=== PATIENT | female | born 1970 | race Caucasian/White ===

== ENCOUNTER 2018-03-27 14:17 | Outpatient (CLI) | END 2018-03-27 14:45 | disposition short-term general hospital (02) | LOC: AMBL 14:17 | PROVIDERS: ATTEND Family Medicine | DX: R11.2 Nausea with vomiting, unspecified (principal); R19.7 Diarrhea, unspecified ==

== ENCOUNTER 2018-10-03 12:48 | Emergency (ER) ==
[2018-10-03 12:53] VITALS: BP 119/72; TEMP 99
[2018-10-03] MEDS ORDERED: DILAUDID 1 MG/ML SYRINGE IM STA (13:27)
--- NOTE | 2018-10-03 14:11 | ED.PDOC ---
General ED Provider: Dr. JACQUELYN WILLS Chief Complaint: Non-specific Complaint Stated Complaint: pateint is a 47 year old female who has a history of cervical cancer who comes to the ER with lower abdominal pain at feels like her prior cancer pain. She is out of her medication and has been for 4 months. Pain got worse last night. Denies any fever or chills. Time Seen by Physician: 14:10 Mode of Arrival: Walk-In Information Source: Patient Primary Care Provider: LINDA GREEN Nursing and Triage Documentation Reviewed and Agree: Yes Does patient meet sepsis criteria?: No System Inflammatory Response Syndrome: Not Applicable Sepsis Protocol: For patient's 13 years and over: Temp is 96.8 and below OR 101 and greater Pulse >90 BPM Resp >20/minute Acutely Altered Mental Status Are patient's symptoms suggestive of a new infection, such as: -Pneumonia -Skin, Soft Tissue -Endocarditis -UTI -Bone, Joint Infection -Implantable Device -Acute Abdominal Infection -Wound Infection -Meningitis -Blood Stream Catheter Infection -Unknown GI Complaint Exam - Abdominal Pain Complaint/Exam Onset: Gradual Duration: 2 days Symptoms Are: Still present Timing: Constant Initial Severity: Moderate Current Severity: Severe Location of Pain: Suprapubic Character: Reports: Aching, Throbbing Aggravating: Reports: Position Alleviating: Reports: None Associated Signs and Symptoms: Denies: Diaphoresis, Fever, Cough, Chest pain, Dizziness, Back pain, Constipation, Blood in stool, Dysuria, Urinary frequency, Decreased urine output, Decreased appetite, Vaginal bleeding, Vaginal discharge , Nausea, Vomiting, Diarrhea, Sore throat, Decreased activity AAA Risk Factors: Reports: None Cardiac Risk Factors: Reports: None Ectopic Risk Factors: Reports: None Ovarian Torsion Risk Factors: Reports: None Surgical Obstruction Risk Factors: Reports: None Patient Rh Status: Unknown Abdominal Findings: Present: Other (suprapubic pain ) Differential Diagnoses: Appendicitis, Diverticulitis, Gastroenteritis, Renal Colic, UTI, Ovarian Cyst Review of Systems - Review Of Systems Constitutional: Reports: No symptoms Eyes: Reports: No symptoms Ears, Nose, Mouth, Throat: Reports: No symptoms Respiratory: Reports: No symptoms Cardiac: Reports: No symptoms GI: Reports: No symptoms : Reports: Other (pelvic pain ) Musculoskeletal: Reports: No symptoms Skin: Reports: No symptoms Neurological: Reports: Anxiety Endocrine: Reports: No symptoms Hematologic/Lymphatic: Reports: No symptoms All Other Systems: Reviewed and Negative Past Medical History - Past Medical History Previously Healthy: Yes Endocrine: Reports: None Cardiovascular: Reports: None Respiratory: Reports: None Hematological: Reports: None Gastrointestinal: Reports: None Genitourinary: Reports: None Neuro/Psych: Reports: Anxiety, Depression Musculoskeletal: Reports: None Cancer: Reports: Other (cervical ) Last Menstrual Period: bleeding now - Surgical History General Surgical History: Reports: Other (ovary resection ) - Family History Family History: Reports: Unknown - Social History Smoking Status: Former smoker Hx Substance Use: No Alcohol Screening: None Physical Exam - Physical Exam Appearance: Well-appearing Ill-appearing: Mild Pain Distress: None Eyes: MARGARITA, EOMI, Conjunctiva clear Neck: Supple Respiratory: Airway patent Re-Evaluation - Re-Evaluation Time of Re-Evaluation: 16:00 Status: Improved Vital Signs Stable: Yes Pain Level: 5/10 Critical Care Note - Critical Care Note Total Time (mins): 0 Course - Course Hematology/Chemistry: 10/03/18 14:32 10/03/18 14:32 Orders, Labs, Meds: Lab Review 10/03/18 10/03/18 10/03/18 13:40 14:32 14:32 WBC 8.54 RBC 4.65 Hgb 13.3 Hct 41.0 MCV 88.2 MCH 28.6 MCHC 32.4 RDW Coeff of Williams 13.7 Plt Count 405 Immature Gran % (Auto) 0.2 Neut % (Auto) 61.7 Lymph % (Auto) 32.4 [place] % (Auto) 4.2 Eos % (Auto) 1.1 Baso % (Auto) 0.4 Immature Gran # (Auto) 0.0 Neut # (Auto) 5.3 Lymph # (Auto) 2.8 [place] # (Auto) 0.4 Eos # (Auto) 0.1 Baso # (Auto) 0.0 Sodium 139.2 Potassium 3.79 Chloride 107.2 H Carbon Dioxide 21.0 L Anion Gap 14.79 BUN 10.2 Creatinine 0.75 Estimated GFR (MDRD) 82.00 BUN/Creatinine Ratio 13.60 Glucose 84.9 Calcium 9.20 Total Bilirubin 0.51 AST 19.8 ALT 17.3 Alkaline Phosphatase 79.5 Total Protein 7.78 Albumin 4.61 Globulin 3.17 Albumin/Globulin Ratio 1.45 Amylase 97.5 Lipase 139.1 Urine Color Yellow Urine Clarity Clear Urine pH 5.5 Ur Specific [place] 1.025 Urine Protein Negative Urine Glucose (UA) Negative Urine Ketones 2+ Urine Blood Negative Urine Nitrite Negative Urine Bilirubin Negative Urine Urobilinogen 0.2 Ur Leukocyte Esterase Negative Ur Squamous Epith Cells Not present Orders Category Date Time Status AMYLASE Stat LAB 10/03/18 14:32 Completed CBC W/ AUTO DIFF Stat LAB 10/03/18 14:32 Completed COMPREHENSIVE METABOLIC PANEL Stat LAB 10/03/18 14:32 Completed LIPASE Stat LAB 10/03/18 14:32 Completed UA [URINALYSIS C & S IF INDICATED] Stat LAB 10/03/18 13:40 Completed Hydromorphone HCl [Dilaudid 1 mg/ml Syringe] MEDS 10/03/18 13:27 Discontinued 1 mg IM ONCE STA CT ABDOMEN/PELVIS WO CONTRAST Stat RADS 10/03/18 14:11 Completed Medications Discontinued Medications Generic Name Dose Route Start Last Admin Trade Name Freq PRN Reason Stop Dose Admin Hydromorphone HCl 1 mg 10/03/18 13:27 10/03/18 13:33 Dilaudid 1 Mg/Ml Syringe IM 10/03/18 13:28 1 mg ONCE STA Administration Vital Signs: Temp Pulse Resp BP Pulse Ox 10/03/18 12:50 99.0 F 69 20 119/72 98 Departure - Departure Time of Disposition: 16:06 Disposition: HOME SELF-CARE Discharge Problem: Abdominal pain Qualifiers: Abdominal location: lower abdomen, unspecified Qualified Code(s): R10.30 - Lower abdominal pain, unspecified Instructions: Abdominal Pain (ED) Condition: Fair Pt referred to PMD for follow-up: Yes IPMP verified?: Yes (Jul 07 2018 was the last percocet Rx) Additional Instructions: Take medications as needed for pain take laxatives while on pain medications. follow up with PCP in 3 days Prescriptions: Oxycodone-Acetaminophe 7.5-325 [Percocet 7.5-325] 1 tab PO Q6H #20 tablet Sennosides [Senna Lax] 8.6 mg PO BID #60 tablet Allergies/Adverse Reactions: Allergies Sulfa (Sulfonamide Antibiotics) Adverse Reaction (Verified 10/03/18 12:53) Home Medications: Ambulatory Orders Escitalopram Oxalate [Lexapro] 20 mg PO DAILY 10/03/18 Oxycodone-Acetaminophe 7.5-325 [Percocet 7.5-325] 1 tab PO Q6H #20 tablet Sennosides [Senna Lax] 8.6 mg PO BID #60 tablet 10/03/18 Topiramate [Topamax] 100 mg PO PRN PRN 10/03/18 Disposition Discussed With: Patient, Family
--- NOTE | 2018-10-03 14:56 | CT ---
EXAM: CT abdomen and pelvis without contrast. HISTORY: Pelvic pain with history of cervical cancer TECHNIQUE: Multi-slice transaxial helical CT. Coronal and sagittal reformatons were performed. COMPARISON: 03/27/2018 FINDINGS: The heart is normal in size. Subsegmental atelectasis is seen within the left lung base. Evaluation of the solid organs is limited without IV contrast. The spleen is normal in size. The ga llbladder has been removed. No intrahepatic biliary ductal dilation is seen. The pancreas and the b ilateral adrenal glands appear grossly unremarkable. No hydronephrosis or renal calculus is seen. The bowel is not dilated. Urinary bladder is not well distended. The uterus has been removed. The appendix appears normal. No pelvic free fluid is seen. No retroperitoneal adenopathy is seen. 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 IMPRESSION: 1. No acute abdominal findings. 2. No hydronephrosis or renal calculus. 3. Prior cholecystectomy and hysterectomy. 4. Normal appendix. 5. Limited exam without IV contrast.
== END 2018-10-03 16:07 | disposition home or self-care (01) ==
LOC: ED 12:48
DX: R10.30 Lower abdominal pain, unspecified (principal); F41.8 Other specified anxiety disorders; Z85.41 Personal history of malignant neoplasm of cervix uteri
CPT/HCPCS: 36415; 80053; 81001; 82150; 83690; 85025; 96372; 99283

== ENCOUNTER 2019-01-14 17:53 | Emergency (ER) ==
[2019-01-14 17:58] VITALS: BP 123/86; TEMP 98.1; BMI 30.4
[2019-01-14] MEDS ORDERED: MORPHINE 2 MG/ML SYRINGE IM STA (19:02)
[2019-01-14] MEDS ORDERED: PHENERGAN 25 MG/ML VIAL IM STA (19:03)
--- NOTE | 2019-01-14 20:11 | CT ---
EXAM: CT abdomen and pelvis without contrast. HISTORY: Lower abdominal pain. Vaginal pain. TECHNIQUE: Multi-slice transaxial helical CT. Coronal and sagittal reformatons were performed. COMPARISON: 10/03/2089 FINDINGS: The heart is normal in size. The lung bases are clear. Evaluation of the solid organs is limited without IV contrast. The spleen is normal in size. The ga llbladder has been removed. The pancreas and the bilateral adrenal glands appear grossly unremarkabl e. No hydronephrosis or renal calculus is seen. No intrahepatic biliary ductal dilation is seen. The bowel is not dilated. The appendix appears normal in size. The uterus has been removed. Urinar y bladder appears grossly unremarkable. No pelvic free fluid is seen. No retroperitoneal adenopathy is seen. Minimal multilevel lower lumbar facet osteoarthritis is seen. IMPRESSION: 1. No acute abdominal findings. 2. Prior operative and incidental findings as detailed above.
--- NOTE | 2019-01-14 20:21 | ED.PDOC ---
General ED Provider: Dr. RUBEN MUNOZ-ER Chief Complaint: Non-specific Complaint Stated Complaint: im having bleeding--i had a hyst 10 yrs ago and now im having vaginal bleeding --i was told my uterine cancer is back and they are sending me to [facility] about this Time Seen by Physician: 18:00 Mode of Arrival: Walk-In Information Source: Patient Exam Limitations: No limitations Primary Care Provider: LINDA GREEN Nursing and Triage Documentation Reviewed and Agree: Yes Does patient meet sepsis criteria?: No System Inflammatory Response Syndrome: Not Applicable Sepsis Protocol: For patient's 13 years and over: Temp is 96.8 and below OR 101 and greater Pulse >90 BPM Resp >20/minute Acutely Altered Mental Status Are patient's symptoms suggestive of a new infection, such as: -Pneumonia -Skin, Soft Tissue -Endocarditis -UTI -Bone, Joint Infection -Implantable Device -Acute Abdominal Infection -Wound Infection -Meningitis -Blood Stream Catheter Infection -Unknown 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 Exam - Vaginal Bleeding Complaint/Exam Onset/Duration: 3 weeks Symptoms Are: Still present Timing: Constant Initial Severity: Mild Current Severity: Mild Associated Signs and Symptoms: Reports: Abdominal pain Abdominal Findings: Present: None Vulva Exam: Present: Normal Findings Vaginal Exam: Present: Normal Findings Cervical Exam: Present: Normal findings Adnexal Exam: Present: Normal Findings Review of Systems - Review Of Systems Constitutional: Reports: No symptoms Eyes: Reports: No symptoms Ears, Nose, Mouth, Throat: Reports: No symptoms Respiratory: Reports: No symptoms Cardiac: Reports: No symptoms GI: Reports: No symptoms : Reports: No symptoms Musculoskeletal: Reports: No symptoms Skin: Reports: No symptoms Neurological: Reports: No symptoms Endocrine: Reports: No symptoms Hematologic/Lymphatic: Reports: No symptoms All Other Systems: Reviewed and Negative Past Medical History - Past Medical History Previously Healthy: Yes Endocrine: Reports: None Cardiovascular: Reports: None Respiratory: Reports: None Hematological: Reports: None Gastrointestinal: Reports: None Genitourinary: Reports: None Neuro/Psych: Reports: Anxiety, Depression Musculoskeletal: Reports: None Cancer: Reports: Other (cervical ) Last Menstrual Period: N/A - Surgical History General Surgical History: Reports: Other (ovary resection ) - Family History Family History: Reports: Unknown - Social History Smoking Status: Former smoker Hx Substance Use: No Alcohol Screening: None Physical Exam - Physical Exam Appearance: Well-appearing, No pain distress, Well-nourished Pain Distress: Mild Eyes: MARGARITA, EOMI, Conjunctiva clear ENT: Ears normal, Nose normal, Oropharynx normal Neck: Supple Respiratory: Airway patent Cardiovascular: RRR, Pulses normal, No rub, No murmur GI/: Soft, Nontender, No masses, Bowel sounds normal, No Organomegaly Musculoskeletal: Normal strength, ROM intact, No edema, No calf tenderness Skin: Warm, Dry, Normal color Neurological: Sensation intact, Motor intact, Reflexes intact, Cranial nerves intact, Alert, Oriented Psychiatric: Affect appropriate, Mood appropriate Interpretation - Radiology Interpretation Radiology Interpretation By: Radiologist Radiology Results: Negative Exam Interpreted: CT Scan Critical Care Note - Critical Care Note Total Time (mins): 0 Course - Course Hematology/Chemistry: 01/14/19 18:42 01/14/19 18:42 Orders, Labs, Meds: Lab Review 01/14/19 01/14/19 01/14/19 18:42 18:42 18:42 WBC 9.79 RBC 4.09 L Hgb 11.9 L Hct 36.1 L MCV 88.3 MCH 29.1 MCHC 33.0 RDW Coeff of Williams 13.2 Plt Count 398 Immature Gran % (Auto) 0.3 Neut % (Auto) 58.6 Lymph % (Auto) 32.6 [place] % (Auto) 6.1 Eos % (Auto) 2.0 Baso % (Auto) 0.4 Immature Gran # (Auto) 0.0 Neut # (Auto) 5.7 Lymph # (Auto) 3.2 [place] # (Auto) 0.6 Eos # (Auto) 0.2 Baso # (Auto) 0.0 Sodium 139.9 Potassium 4.54 Chloride 103.2 Carbon Dioxide 28.8 Anion Gap 12.44 BUN 12.9 Creatinine 0.88 Estimated GFR (MDRD) 68.00 BUN/Creatinine Ratio 14.65 Glucose 95.2 Calcium 8.73 Total Bilirubin 0.52 AST 28.0 ALT 15.7 Alkaline Phosphatase 75.5 Total Protein 7.71 Albumin 4.17 Globulin 3.54 Albumin/Globulin Ratio 1.17 Serum , Qual Negative Urine Color Urine Clarity Urine pH Ur Specific [place] Urine Protein Urine Glucose (UA) Urine Ketones Urine Blood Urine Nitrite Urine Bilirubin Urine Urobilinogen Ur Leukocyte Esterase Urine Microscopic RBC Urine Microscopic WBC Ur Squamous Epith Cells Urine Bacteria Urine Mucus 01/14/19 19:09 WBC RBC Hgb Hct MCV MCH MCHC RDW Coeff of Williams Plt Count Immature Gran % (Auto) Neut % (Auto) Lymph % (Auto) [place] % (Auto) Eos % (Auto) Baso % (Auto) Immature Gran # (Auto) Neut # (Auto) Lymph # (Auto) [place] # (Auto) Eos # (Auto) Baso # (Auto) Sodium Potassium Chloride Carbon Dioxide Anion Gap BUN Creatinine Estimated GFR (MDRD) BUN/Creatinine Ratio Glucose Calcium Total Bilirubin AST ALT Alkaline Phosphatase Total Protein Albumin Globulin Albumin/Globulin Ratio Serum , Qual Urine Color Yellow Urine Clarity Slightly Urine pH 5.5 Ur Specific [place] 1.025 Urine Protein Negative Urine Glucose (UA) Negative Urine Ketones Negative Urine Blood Trace-lysed Urine Nitrite Negative Urine Bilirubin Negative Urine Urobilinogen 0.2 Ur Leukocyte Esterase Negative Urine Microscopic RBC 2-5 Urine Microscopic WBC 2-5 Ur Squamous Epith Cells 5-10 Urine Bacteria 1+ Urine Mucus 2+ Orders Category Date Time Status CBC W/ AUTO DIFF Stat LAB 01/14/19 18:42 Completed COMPREHENSIVE METABOLIC PANEL Stat LAB 01/14/19 18:42 Completed SERUM Stat LAB 01/14/19 18:42 Completed UA [URINALYSIS C & S IF INDICATED] Stat LAB 01/14/19 19:09 Completed URINE CULTURE Stat LAB 01/14/19 19:09 Received Morphine Sulfate [Morphine 2 mg/ml Syringe] MEDS 01/14/19 19:02 Discontinued 4 mg IM ONCE STA Promethazine HCl [Phenergan 25 mg/ml Vial] MEDS 01/14/19 19:03 Discontinued 25 mg IM ONCE STA CT ABDOMEN/PELVIS WO CONTRAST Stat RADS 01/14/19 19:11 Completed Medications Discontinued Medications Generic Name Dose Route Start Last Admin Trade Name Freq PRN Reason Stop Dose Admin Morphine Sulfate 4 mg 01/14/19 19:02 01/14/19 19:38 Morphine 2 Mg/Ml Syringe IM 01/14/19 19:03 4 mg ONCE STA Administration Promethazine HCl 25 mg 01/14/19 19:03 01/14/19 19:39 Phenergan 25 Mg/Ml Vial IM 01/14/19 19:04 25 mg ONCE STA Administration Vital Signs: Temp Pulse Resp BP Pulse Ox 01/14/19 17:57 98.1 F 107 H 18 123/86 96 Departure - Departure Time of Disposition: 20:22 Disposition: HOME SELF-CARE Discharge Problem: Uterine cancer Qualifiers: Malignant neoplasm of uterus location: unspecified site of uterus Qualified Code(s): C55 - Malignant neoplasm of uterus, part unspecified Instructions: Uterine Cancer (DC) Condition: Good Pt referred to PMD for follow-up: Yes IPMP verified?: No Additional Instructions: 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
== END 2019-01-14 20:34 | disposition home or self-care (01) ==
LOC: ED 17:53
DX: C55 Malignant neoplasm of uterus, part unspecified (principal); R10.9 Unspecified abdominal pain; N93.9 Abnormal uterine and vaginal bleeding, unspecified
CPT/HCPCS: 36415; 80053; 81001; 84703; 85025; 87086; 96372; 99283

== ENCOUNTER 2019-01-30 17:15 | Emergency (ER) ==
[2019-01-30 17:23] VITALS: BP 124/76; TEMP 99.9; BMI 30.8
[2019-01-30] MEDS ORDERED: PERCOCET 7.5-325 PO STA (18:00)
--- NOTE | 2019-01-30 18:20 | ED.PDOC ---
General ED Provider: Dr. RUBEN MUNOZ-ER Chief Complaint: Abdominal Pain Stated Complaint: stacey got cancer and its in my ovary---linda leggett is sending me to [facility] Time Seen by Physician: 17:20 Mode of Arrival: Walk-In Information Source: Patient Exam Limitations: No limitations Primary Care Provider: LINDA LEGGETT Nursing and Triage Documentation Reviewed and Agree: Yes Does patient meet sepsis criteria?: No System Inflammatory Response Syndrome: Not Applicable Sepsis Protocol: For patient's 13 years and over: Temp is 96.8 and below OR 101 and greater Pulse >90 BPM Resp >20/minute Acutely Altered Mental Status Are patient's symptoms suggestive of a new infection, such as: -Pneumonia -Skin, Soft Tissue -Endocarditis -UTI -Bone, Joint Infection -Implantable Device -Acute Abdominal Infection -Wound Infection -Meningitis -Blood Stream Catheter Infection -Unknown GI Complaint Exam - Abdominal Pain Complaint/Exam Onset: Gradual Duration: several weeks Symptoms Are: Still present Timing: Constant Initial Severity: Mild Current Severity: Moderate Location of Pain: Discrete, Suprapubic Character: Reports: Dull, Aching Aggravating: Reports: None Alleviating: Reports: Spontaneous resolution Associated Signs and Symptoms: Denies: Diaphoresis, Fever, Cough, Chest pain, Dizziness, Back pain, Constipation, Blood in stool, Dysuria, Urinary frequency, Decreased urine output, Decreased appetite, Vaginal bleeding, Vaginal discharge , Nausea, Vomiting, Diarrhea, Sore throat, Decreased activity Patient Rh Status: Unknown Abdominal Findings: Present: None Quality Indicator For Non-Traumatic Chest Pain/Syncope: EKG Performed Review of Systems - Review Of Systems Constitutional: Reports: No symptoms Eyes: Reports: No symptoms Ears, Nose, Mouth, Throat: Reports: No symptoms Respiratory: Reports: No symptoms Cardiac: Reports: No symptoms GI: Reports: Abdominal pain : Reports: No symptoms Musculoskeletal: Reports: No symptoms Skin: Reports: No symptoms Neurological: Reports: No symptoms Endocrine: Reports: No symptoms Hematologic/Lymphatic: Reports: No symptoms All Other Systems: Reviewed and Negative Past Medical History - Past Medical History Previously Healthy: Yes Endocrine: Reports: None Cardiovascular: Reports: None Respiratory: Reports: None Hematological: Reports: None Gastrointestinal: Reports: None Genitourinary: Reports: None Neuro/Psych: Reports: Anxiety, Depression Musculoskeletal: Reports: None Cancer: Reports: Other (cervical ) Last Menstrual Period: December - Surgical History General Surgical History: Reports: Other (ovary resection ) - Family History Family History: Reports: Unknown - Social History Smoking Status: Former smoker Hx Substance Use: No Alcohol Screening: None Physical Exam - Physical Exam Appearance: Well-appearing, No pain distress, Well-nourished Eyes: MARGARITA, EOMI, Conjunctiva clear ENT: Ears normal, Nose normal, Oropharynx normal Neck: Supple Respiratory: Airway patent, Breath sounds clear, Breath sounds equal, Respirations nonlabored Cardiovascular: RRR, Pulses normal, No rub, No murmur GI/: Soft, Nontender, No masses, Bowel sounds normal, No Organomegaly Musculoskeletal: Normal strength, ROM intact, No edema, No calf tenderness Skin: Warm, Dry, Normal color Neurological: Sensation intact, Motor intact, Reflexes intact, Cranial nerves intact, Alert, Oriented Psychiatric: Affect appropriate Interpretation - Radiology Interpretation Radiology Interpretation By: Radiologist Radiology Results: Positive Exam Interpreted: CT Scan - EKG Interpretation Time of EKG #1: 18:22 Rate: Normal Rhythm: Sinus Ectopy: None [place]: NL ST Segment: Normal Interpretation: nsr Critical Care Note - Critical Care Note Total Time (mins): 0 Course - Course Hematology/Chemistry: 01/30/19 17:33 01/30/19 17:33 Orders, Labs, Meds: Lab Review 01/30/19 01/30/19 01/30/19 17:25 17:33 17:33 WBC 10.00 RBC 3.94 L Hgb 11.5 L Hct 34.9 L MCV 88.6 MCH 29.2 MCHC 33.0 RDW Coeff of Williams 13.4 Plt Count 442 H Immature Gran % (Auto) 0.2 Neut % (Auto) 63.2 Lymph % (Auto) 28.2 [place] % (Auto) 5.6 Eos % (Auto) 2.6 Baso % (Auto) 0.2 Immature Gran # (Auto) 0.0 Neut # (Auto) 6.3 Lymph # (Auto) 2.8 [place] # (Auto) 0.6 Eos # (Auto) 0.3 Baso # (Auto) 0.0 ESR 27 H Sodium 138.9 Potassium 3.69 Chloride 105.0 Carbon Dioxide 25.0 Anion Gap 12.59 BUN 7.6 Creatinine 0.69 Estimated GFR (MDRD) 90.00 BUN/Creatinine Ratio 11.01 Glucose 99.4 Calcium 8.70 Total Bilirubin 0.23 AST 16.9 ALT 13.4 Alkaline Phosphatase 59.4 Total Creatine Kinase 72.0 Troponin I < 0.012 Total Protein 7.39 Albumin 3.88 Globulin 3.51 Albumin/Globulin Ratio 1.10 Amylase 70.6 Lipase 95.5 Urine Color Yellow Urine Clarity Clear Urine pH 6.0 Ur Specific [place] 1.015 Urine Protein Negative Urine Glucose (UA) Negative Urine Ketones Negative Urine Blood Trace-intact Urine Nitrite Negative Urine Bilirubin Negative Urine Urobilinogen 0.2 Ur Leukocyte Esterase Negative Urine Microscopic RBC 2-5 Urine Microscopic WBC 0-2 Ur Squamous Epith Cells 5-10 Urine Bacteria 1+ Orders Category Date Time Status EKG-(ED ONLY) Stat CARDIO 01/30/19 17:19 Completed AMYLASE Stat LAB 01/30/19 17:33 Completed CBC W/ AUTO DIFF Stat LAB 01/30/19 17:33 Completed COMPREHENSIVE METABOLIC PANEL Stat LAB 01/30/19 17:33 Completed CREATINE KINASE Stat LAB 01/30/19 17:33 Completed ESR Stat LAB 01/30/19 17:33 Completed LIPASE Stat LAB 01/30/19 17:33 Completed TROPONIN I Stat LAB 01/30/19 17:33 Completed URINALYSIS C & S IF INDICATED Stat LAB 01/30/19 17:25 Completed URINE CULTURE Stat LAB 01/30/19 17:25 Received Oxycodone-Acetaminophe 7.5-325 [Percocet 7.5-325] MEDS 01/30/19 18:00 Discontinued 1 tab PO ONCE STA CT ABDOMEN/PELVIS WO CONTRAST Stat RADS 01/30/19 17:22 Completed Medications Discontinued Medications Generic Name Dose Route Start Last Admin Trade Name Raul PRN Reason Stop Dose Admin Oxycodone/Acetaminophen 1 tab 01/30/19 18:00 01/30/19 18:05 Percocet 7.5-325 PO 01/30/19 18:01 1 tab ONCE STA Administration Vital Signs: Temp Pulse Resp BP Pulse Ox 01/30/19 17:16 99.9 F H 99 H 20 124/76 97 Departure - Departure Time of Disposition: 18:23 Disposition: HOME SELF-CARE Discharge Problem: Abdominal pain Instructions: Abdominal Pain (ED) Condition: Good Pt referred to PMD for follow-up: Yes IPMP verified?: No Additional Instructions: f/u with linda leggett for further instructions regarding the ovary Allergies/Adverse Reactions: Allergies Sulfa (Sulfonamide Antibiotics) Adverse Reaction (Verified 01/30/19 17:20) Home Medications: Ambulatory Orders Escitalopram Oxalate [Lexapro] 20 mg PO DAILY 10/03/18 Topiramate [Topamax] 100 mg PO PRN PRN 10/03/18 Disposition Discussed With: Patient, Family
--- NOTE | 2019-01-30 18:20 | CT ---
EXAM: CT abdomen pelvis without contrast HISTORY: Uterine cancer, low abdominal pain COMPARISON: 01/14/2019 TECHNIQUE: CT abdomen pelvis performed without intravenous contrast. Coronal and sagittal reformatt ed images obtained. FINDINGS: Mild bibasilar atelectasis. No free air. No acute abnormalities of the bones. Mild dege nerative change in the spine. Heart normal in size. Evaluation organ parenchyma limited without con trast. Liver unremarkable. Patient status post cholecystectomy. Pancreas grossly unremarkable, not ing motion artifact limits evaluation. Spleen grossly unremarkable and motion artifact limits evalua tion. Adrenals unremarkable. No hydronephrosis or nephrolithiasis. Bladder only minimally distende d and poorly evaluated. Left ovarian cyst or follicle measuring approximately 2.9 cm. Aorta normal in caliber. No lymphadenopathy or ascites. Patient status post hysterectomy. Small hiatal hernia. No dilated loops small bowel. Appendix appears normal. Colon unremarkable. Small fat-containing p eriumbilical hernia. No inflammatory stranding identified in the abdomen pelvis. IMPRESSION: 1. No acute inflammatory process identified in the abdomen pelvis. 2. 2.9 cm left ovarian cyst or follicle are three small hiatal hernia
== END 2019-01-30 18:30 | disposition home or self-care (01) ==
LOC: ED 17:15
DX: R10.9 Unspecified abdominal pain (principal)
CPT/HCPCS: 36415; 80053; 81001; 82150; 82550; 83690; 84484; 85025; 85651; 87086; 93005; 93010; 99283